=== PATIENT | female | born 1950 | race Caucasian/White ===

== ENCOUNTER → 2016-09-13 | Outpatient (CLI) | payer MEDICARE ==
[~2016-09-13] MED LIST: ALPR0.25 PO; AMLO5TAB2; ASCO-262 PO; ASP81TEC PO; BISO1TAB41 PO; ESCI10TA55; ESCT10T PO; FOLI1TAB24 PO; HCT25T PO; MULT-1029 PO; OLME20TA22; OMG1KC PO; PANT40TA2 PO; PITA2TAB2 PO; RED600TA PO; [UNRECOGNIZED DRUG - REMARK]
--- NOTE | 2016-09-13 16:19 | Diagnostic Imaging Report ---
PROCEDURE: MRI right joint lower extremity without contrast. TECHNIQUE: Multiplanar, multisequence non contrast-enhanced MRI of the right lower extremity was accomplished. INDICATION: Right knee pain. FINDINGS: There is a mild distention of the superficial infrapatellar bursa compatible with bursitis. There is a minimal suprapatellar effusion. There is a small popliteal cyst measuring 1.5 x 0.5 x 4.9 CM with evidence of a leakage into the surrounding tissue. The quadriceps and the patellar tendons appear intact. The PCL is intact. The ACL demonstrate no significant tear. There is fluid signal near its tibial insertion along the fibers suggestive of a mucinous degeneration. There is an undersurface tear in the posterior horn and body of the medial meniscus. The lateral meniscus demonstrate no definite tear. Degenerative signal however is seen particularly in the body of the lateral meniscus. The lateral collateral ligament components appear intact. The MCL demonstrate edema around it suggestive of a sprain with no destruction of its fibers or evidence of a significant tear. There is significant thinning of the cartilage, more than 75% in the patella mostly involving the upper aspect of the medial facet. The median roughe is also involved with less prominent cartilage thinning in the lateral facet. Reactive bone marrow changes in the subchondral marrow in the patella is seen. The medial and lateral compartments demonstrate cartilage thinning about 50% medially and minimal cartilage thinning laterally. Tricompartment small osteophytes are seen. IMPRESSION: 1. Patellar chondromalacia. 2. Medial meniscus tear. 3. Leaking Portillo's cyst. 4. Medial meniscus pain. Dictated by: Dictated on workstation # [id number]
== END ==
LOC: RAD 08:59
PROVIDERS: ATTEND Nurse Practitioner
DX: S83.241A Other tear of medial meniscus, current injury, right knee, initial encounter (principal); M71.21 Synovial cyst of popliteal space [Baker], right knee; M22.41 Chondromalacia patellae, right knee; X58.XXXA Exposure to other specified factors, initial encounter; Y99.8 Other external cause status
CPT/HCPCS: 73721